=== PATIENT | male | born 1955 | race African-American/Black ===

== ENCOUNTER 2018-06-05 17:38 | Inpatient (IN) ==
[2018-06-05] MEDS ORDERED: LORazepam 1 MG TABLET PO STA (18:04)
[2018-06-05] MEDS ORDERED: LORazepam 1 MG TABLET ONE (18:06)
[2018-06-05 19:16] LABS: Basophils % 0.3 % (0.0-0.8); Hematocrit 40.7 VOL% (42.0-52.0); Hemoglobin 12.8 GM/DL (14.0-18.0); Immature Granulocytes % 0.5 %; Immature Granulocytes Absolute 0.07 #; Lymphocytes # 0.7 10*3/uL (1.4-4.0); Lymphocytes % 4.9 % (21.2-54.2); Mean Corpuscular HGB Conc 31.4 GM/DL (32-36); Mean Corpuscular Hemoglobin 26 PG (27-34); Mean Corpuscular Volume 83.4 FL (87-102); Mean Platelet Volume 9.9 FL (9.6-12.0); Monocytes # 0.7 10*3/uL (0.11-0.8); Monocytes % 5.1 % (1.7-12.7); Neutrophils # 12.9 10*3/uL (1.4-7.4); Neutrophils % 89.2 % (38.7-73.9); Platelet Count 328 T/CUMM (130-400); Red Blood Count 4.88 MC/CUMM (3.8-5.5); Red Cell Distribution Width 15.4 % (9.3-17.3); White Blood Count 14.4 T/CUMM (4-12)
[2018-06-05 19:30] LABS: PT Patient Result 10.2 SECS; Partial Thromboplastin Time < 21.0 SECS (0-40)
[2018-06-05 19:38] LABS: Band Neutrophils 2 % (0-10); Lymphocytes 11 % (20-55); Platelet Estimate Normal; Segmented Neutrophils 83 % (50-85); Total Cells Counted 100
[2018-06-05 19:48] LABS: Lactic Acid 5.3 MMOL/L (0.4-2.0)
[2018-06-05 19:49] LABS: Alanine Aminotransferase 27 U/L (16-61); Albumin 3.7 G/DL (3.4-5.0); Alkaline Phosphatase 149 U/L (45-117); Aspartate Amino Transferase 41 U/L (0-37); Bilirubin,Total < 0.39 MG/DL (0.2-1.0); Blood Urea Nitrogen 22 MG/DL (7-18); Calcium 10.6 MG/DL (8.5-10.1); Glucose 123 MG/DL (74-106); Osmolality,Calculated 286.1 MOS/KG (273-304); Potassium 4.7 MMOL/L (3.5-5.1); Sodium 142 MMOL/L (136-145); Total Protein 7.8 G/DL (6.4-8.3)
[2018-06-05 19:51] LABS: Troponin I Only 0.018 NG/ML (0.00-0.045)
[2018-06-05] MEDS ORDERED: SODIUM CHLORIDE 0.9% 1,000 ML IV STA (20:30)
[2018-06-05] MEDS: VANCOMYCIN INJ 1,000 MG in SODIUM CHLORIDE 0.9% 250 ML IV SCH (21:30)
[2018-06-05] MEDS ORDERED: ONDANSETRON 4 MG/2 ML VIAL IV PRN (21:33)
[2018-06-05] MEDS ORDERED: BISACODYL 5 MG TABLET PO PRN (21:33)
[2018-06-05] MEDS ORDERED: ACETAMINOPHEN 325 MG TABLET PO PRN (21:33)
[2018-06-05] MEDS ORDERED: LACTULOSE 20 GM/30 ML UDCUP PO PRN (21:33)
[2018-06-05] MEDS ORDERED: traZODone 50 MG TABLET PO PRN (21:33)
[2018-06-05] MEDS ORDERED: SODIUM CHLORIDE 0.9% 1,000 ML IV SCH (22:30)
[2018-06-05 22:37] LABS: Apearance,Urine CLEAR (Clear); Bilirubin,Urine Negative (Negative); Blood, Urine Small mg/dL (Negative); Glucose,Urine (UA) Negative (Negative); Hyaline Casts,Urine 1 /LPF (0-3); Ketones,Urine Negative (Negative); Mucus,Urine Occasional /LPF (Occasional); Nitrite,Urine Negative (Negative); Protein,Urine 100 MG/DL; RBC,Urine 3 /HPF (0-4); Urine Color Yellow (Yellow); Urine Specific Gravity 1.011 (1.001-1.035); Urine Urobilinogen < 2.0 EU/DL (0.2-1.0); WBC,Urine 1 /HPF (0-6)
[2018-06-06] MEDS: MORPHINE 4 MG/1 ML VIAL IV PRN ×3 (00:46→22:21)
[2018-06-06 05:33] LABS: Calcium 8.8 MG/DL (8.5-10.1); Potassium 3.8 MMOL/L (3.5-5.1)
[2018-06-06 05:36] LABS: Albumin 3.1 G/DL (3.4-5.0); Bilirubin,Total 0.4 MG/DL (0.2-1.0); Calcium 8.8 MG/DL (8.5-10.1); Potassium 3.8 MMOL/L (3.5-5.1); Total Protein 6.4 G/DL (6.4-8.3)
[2018-06-06 07:11] LABS: Basophils % 0.3 % (0.0-0.8); Eosinophils % 0.1 % (0.00-10.9); Hematocrit 34.3 VOL% (42.0-52.0); Immature Granulocytes % 0.7 %; Immature Granulocytes Absolute 0.09 #; Lymphocytes # 1.2 10*3/uL (1.4-4.0); Mean Corpuscular HGB Conc 31.5 GM/DL (32-36); Mean Corpuscular Hemoglobin 26 PG (27-34); Mean Corpuscular Volume 83.9 FL (87-102); Mean Platelet Volume 10.1 FL (9.6-12.0); Monocytes # 1.5 10*3/uL (0.11-0.8); Monocytes % 11.5 % (1.7-12.7); Neutrophils # 10.2 10*3/uL (1.4-7.4); Neutrophils % 78.4 % (38.7-73.9); Platelet Count 265 T/CUMM (130-400); Red Blood Count 4.09 MC/CUMM (3.8-5.5); Red Cell Distribution Width 15.2 % (9.3-17.3)
[2018-06-06 07:14] LABS: Hemoglobin 10.8 GM/DL (14.0-18.0)
[2018-06-06] MEDS: ATENOLOL 50 MG TABLET PO SCH (11:02)
[2018-06-06] MEDS: VANCOMYCIN INJ 1,000 MG in SODIUM CHLORIDE 0.9% 250 ML IV SCH ×2 (11:07→20:48)
[2018-06-06] MEDS: FAMOTIDINE 20 MG TABLET PO SCH ×2 (13:48→20:50)
[2018-06-06] MEDS: DEXTROSE 5% LACTATED RINGERS 1,000 ML IV SCH (15:10)
[2018-06-07] MEDS: DEXTROSE 5% LACTATED RINGERS 1,000 ML IV SCH ×4 (01:15→23:24)
[2018-06-07] MEDS ORDERED: ceFAZolin 2,000 MG in PREMIX 1 EACH IV ONE (06:36)
[2018-06-07] MEDS ORDERED: VANCOMYCIN INJ 1,000 MG in SODIUM CHLORIDE 0.9% 250 ML IV ONE (06:36)
[2018-06-07 08:30] LABS: Total Protein (Chem) 6.6 G/DL (6.4-8.3)
[2018-06-07] MEDS: ATENOLOL 50 MG TABLET PO SCH (09:27)
[2018-06-07] MEDS: FAMOTIDINE 20 MG TABLET PO SCH ×2 (09:28→21:19)
[2018-06-07] MEDS: VANCOMYCIN INJ 1,000 MG in SODIUM CHLORIDE 0.9% 250 ML IV SCH ×2 (10:04→21:19)
[2018-06-07] MEDS ORDERED: BACITRACIN OINT 0.9 GM PACK TOP ONE (10:16)
[2018-06-07 10:53] LABS: Albumin (SPE) 3.9 G/DL (3.2-5.3); Alpha 1 (SPE) 0.3 G/DL (0.1-0.4); Alpha 1 (SPE) Rel % 3.8 %; Alpha 2 (SPE) 0.9 G/DL (0.4-1.0); Beta (SPE) 0.8 G/DL (0.5-1.1); Beta (SPE) Rel % 11.7 %; Gamma (SPE) 0.7 G/DL (0.7-1.7); Gamma (SPE) Rel % 10.5 %
[2018-06-07] MEDS ORDERED: diphenhydrAMINE CAP 25 MG CAPSULE PO PRN (11:29)
[2018-06-07] MEDS ORDERED: MAGNESIUM HYDROXIDE SUSP 30 ML UDCUP PO PRN (11:29)
[2018-06-07] MEDS ORDERED: TRANEXAMIC ACID 1,000 MG/10 ML VIAL ONE (11:39)
[2018-06-07] MEDS ORDERED: TOBRAMYCIN 1.2 GM VIAL TOP ONE (11:39)
[2018-06-07] MEDS ORDERED: VANCOMYCIN 1,000 MG VIAL ONE (11:39)
[2018-06-07] MEDS ORDERED: GLYCOPYRROLATE 0.4 MG/2 ML VIAL ONE (12:50)
[2018-06-07] MEDS ORDERED: SUCCINYLCHOLINE 200 MG/10 ML VIAL ONE (12:50)
[2018-06-07] MEDS ORDERED: SEVOFLURANE 1 UNIT/15 MINUTE INH ONE (12:50)
[2018-06-07] MEDS ORDERED: LACTATED RINGERS 1,000 ML IV ONE (12:50)
[2018-06-07] MEDS ORDERED: ROCURONIUM 100 MG/10 ML VIAL IV ONE (12:50)
[2018-06-07] MEDS ORDERED: DEXAMETHASONE 10 MG/1 ML VIAL ONE (12:50)
[2018-06-07] MEDS ORDERED: NEOSTIGMINE 10 MG/10 ML VIAL ONE (12:50)
[2018-06-07] MEDS ORDERED: fentaNYL 100 MCG/2 ML VIAL ONE (12:50)
[2018-06-07] MEDS ORDERED: PHENYLEPHRINE 1 MG/10 ML SYRINGE IV ONE (12:50)
[2018-06-07] MEDS ORDERED: ONDANSETRON 4 MG/2 ML VIAL ONE (12:50)
[2018-06-07] MEDS ORDERED: ACETAMINOPHEN 1,000 MG/100 ML VIAL IV ONE (12:50)
[2018-06-07] MEDS ORDERED: PROPOFOL 200 MG/20 ML VIAL IV ONE (12:51)
[2018-06-07 12:55] LABS: Apearance,Urine CLEAR (Clear); Bacteria,Urine Occasional /HPF (Few); Bilirubin,Urine Negative (Negative); Blood, Urine Small mg/dL (Negative); Glucose,Urine (UA) Negative (Negative); Ketones,Urine Negative (Negative); Nitrite,Urine Negative (Negative); Protein,Urine 100 MG/DL; RBC,Urine 1 /HPF (0-4); Urine Color Yellow (Yellow); Urine Specific Gravity 1.013 (1.001-1.035); Urine Urobilinogen < 2.0 EU/DL (0.2-1.0); WBC,Urine 1 /HPF (0-6)
[2018-06-07 13:19] LABS: Basophils # 0.1 10*3/uL (0.0-0.2); Basophils % 0.4 % (0.0-0.8); Eosinophils % 0.2 % (0.00-10.9); Hematocrit 33.6 VOL% (42.0-52.0); Hemoglobin 10.6 GM/DL (14.0-18.0); Immature Granulocytes % 0.7 %; Immature Granulocytes Absolute 0.09 #; Lymphocytes # 1.3 10*3/uL (1.4-4.0); Lymphocytes % 9.3 % (21.2-54.2); Mean Corpuscular HGB Conc 31.5 GM/DL (32-36); Mean Corpuscular Hemoglobin 26 PG (27-34); Mean Corpuscular Volume 83.6 FL (87-102); Mean Platelet Volume 9.5 FL (9.6-12.0); Monocytes # 1.3 10*3/uL (0.11-0.8); Monocytes % 9.3 % (1.7-12.7); Neutrophils # 10.8 10*3/uL (1.4-7.4); Neutrophils % 80.1 % (38.7-73.9); Platelet Count 229 T/CUMM (130-400); Red Blood Count 4.02 MC/CUMM (3.8-5.5); Red Cell Distribution Width 15.3 % (9.3-17.3); White Blood Count 13.5 T/CUMM (4-12)
[2018-06-07 14:04] LABS: Calcium 8.1 MG/DL (8.5-10.1); Osmolality,Calculated 277.5 MOS/KG (273-304); Potassium 3.9 MMOL/L (3.5-5.1)
[2018-06-07] MEDS: KETOROLAC 30 MG/1 ML VIAL IV SCH ×2 (14:40→21:20)
[2018-06-07] MEDS: ACETAMINOPHEN 500 MG TABLET PO SCH ×2 (16:19→21:19)
[2018-06-07] MEDS: ceFAZolin 2,000 MG in PREMIX 1 EACH IV SCH ×2 (16:23→23:24)
[2018-06-08] MEDS: DEXTROSE 5% LACTATED RINGERS 1,000 ML IV SCH ×2 (01:21→09:57)
[2018-06-08] MEDS: ACETAMINOPHEN 500 MG TABLET PO SCH ×2 (03:00→09:41)
[2018-06-08] MEDS: KETOROLAC 30 MG/1 ML VIAL IV SCH ×2 (03:00→09:42)
[2018-06-08] MEDS: FONDAPARINUX 2.5 MG/0.5 ML SYRINGE SUBCUT SCH (05:12)
[2018-06-08 06:06] LABS: Basophils % 0.1 % (0.0-0.8); Hemoglobin 9.6 GM/DL (14.0-18.0); Immature Granulocytes % 0.5 %; Immature Granulocytes Absolute 0.07 #; Mean Corpuscular Hemoglobin 26 PG (27-34); Mean Corpuscular Volume 84.5 FL (87-102); Mean Platelet Volume 10.5 FL (9.6-12.0); Monocytes # 1.6 10*3/uL (0.11-0.8); Neutrophils # 11.7 10*3/uL (1.4-7.4); Neutrophils % 81.4 % (38.7-73.9); Platelet Count 219 T/CUMM (130-400); Red Blood Count 3.67 MC/CUMM (3.8-5.5); Red Cell Distribution Width 15.1 % (9.3-17.3); White Blood Count 14.4 T/CUMM (4-12)
[2018-06-08 06:42] LABS: Calcium 8.5 MG/DL (8.5-10.1); Osmolality,Calculated 287.1 MOS/KG (273-304); Potassium 3.7 MMOL/L (3.5-5.1)
[2018-06-08] MEDS: ATENOLOL 50 MG TABLET PO SCH (09:41)
[2018-06-08] MEDS: FAMOTIDINE 20 MG TABLET PO SCH ×2 (09:41→20:39)
[2018-06-08] MEDS: VANCOMYCIN INJ 1,000 MG in SODIUM CHLORIDE 0.9% 250 ML IV SCH (09:41)
[2018-06-08] MEDS: cefTRIAXone 1,000 MG in SYRINGE 1 EACH IV SCH (11:30)
[2018-06-08] MEDS: CELECOXIB 200 MG CAPSULE PO SCH (18:02)
[2018-06-08] MEDS: DOCUSATE SODIUM 100 MG CAPSULE PO PRN (20:44)
[2018-06-09] MEDS: FONDAPARINUX 2.5 MG/0.5 ML SYRINGE SUBCUT SCH (05:23)
[2018-06-09 07:10] LABS: Basophils # 0.1 10*3/uL (0.0-0.2); Basophils % 0.6 % (0.0-0.8); Eosinophils # 0.2 10*3/uL (0.0-0.87); Eosinophils % 2.1 % (0.00-10.9); Hemoglobin 9.9 GM/DL (14.0-18.0); Immature Granulocytes % 0.7 %; Immature Granulocytes Absolute 0.08 #; Lymphocytes # 1.1 10*3/uL (1.4-4.0); Lymphocytes % 10.1 % (21.2-54.2); Mean Corpuscular HGB Conc 31.9 GM/DL (32-36); Mean Corpuscular Hemoglobin 27 PG (27-34); Mean Corpuscular Volume 83.8 FL (87-102); Mean Platelet Volume 9.9 FL (9.6-12.0); Monocytes # 1.2 10*3/uL (0.11-0.8); Monocytes % 10.7 % (1.7-12.7); Neutrophils # 8.5 10*3/uL (1.4-7.4); Neutrophils % 75.8 % (38.7-73.9); Platelet Count 278 T/CUMM (130-400); Red Cell Distribution Width 14.8 % (9.3-17.3); White Blood Count 11.2 T/CUMM (4-12)
[2018-06-09 07:31] LABS: Calcium 8.2 MG/DL (8.5-10.1); Potassium 3.4 MMOL/L (3.5-5.1)
[2018-06-09] MEDS: CELECOXIB 200 MG CAPSULE PO SCH (08:20)
[2018-06-09] MEDS: ATENOLOL 50 MG TABLET PO SCH (08:21)
[2018-06-09] MEDS: FAMOTIDINE 20 MG TABLET PO SCH ×2 (08:21→21:07)
[2018-06-09] MEDS: cefTRIAXone 1,000 MG in SYRINGE 1 EACH IV SCH (11:30)
[2018-06-10] MEDS: FONDAPARINUX 2.5 MG/0.5 ML SYRINGE SUBCUT SCH (05:12)
[2018-06-10 05:15] LABS: Basophils # 0.1 10*3/uL (0.0-0.2); Basophils % 0.5 % (0.0-0.8); Eosinophils # 0.5 10*3/uL (0.0-0.87); Eosinophils % 4.9 % (0.00-10.9); Hematocrit 30.5 VOL% (42.0-52.0); Hemoglobin 9.8 GM/DL (14.0-18.0); Immature Granulocytes % 0.8 %; Immature Granulocytes Absolute 0.07 #; Lymphocytes % 11.2 % (21.2-54.2); Mean Corpuscular HGB Conc 32.1 GM/DL (32-36); Mean Corpuscular Hemoglobin 27 PG (27-34); Mean Corpuscular Volume 82.7 FL (87-102); Mean Platelet Volume 9.3 FL (9.6-12.0); Monocytes # 1.1 10*3/uL (0.11-0.8); Monocytes % 11.6 % (1.7-12.7); Neutrophils # 6.5 10*3/uL (1.4-7.4); Platelet Count 293 T/CUMM (130-400); Red Blood Count 3.69 MC/CUMM (3.8-5.5); Red Cell Distribution Width 14.6 % (9.3-17.3); White Blood Count 9.2 T/CUMM (4-12)
[2018-06-10] MEDS: CELECOXIB 200 MG CAPSULE PO SCH (09:31)
[2018-06-10] MEDS: ATENOLOL 50 MG TABLET PO SCH (09:32)
[2018-06-10] MEDS: FAMOTIDINE 20 MG TABLET PO SCH ×2 (09:32→21:43)
[2018-06-10] MEDS: cefTRIAXone 1,000 MG in SYRINGE 1 EACH IV SCH (10:30)
[2018-06-11] MEDS: FONDAPARINUX 2.5 MG/0.5 ML SYRINGE SUBCUT SCH (07:05)
[2018-06-11] MEDS: ATENOLOL 50 MG TABLET PO SCH (08:45)
[2018-06-11] MEDS: CELECOXIB 200 MG CAPSULE PO SCH (08:45)
[2018-06-11] MEDS: FAMOTIDINE 20 MG TABLET PO SCH ×2 (08:45→21:44)
[2018-06-11] MEDS: cefTRIAXone 1,000 MG in SYRINGE 1 EACH IV SCH (11:18)
[2018-06-12 05:50] LABS: Calcium 8.2 MG/DL (8.5-10.1); Osmolality,Calculated 285.8 MOS/KG (273-304); Potassium 3.3 MMOL/L (3.5-5.1)
[2018-06-12] MEDS: FONDAPARINUX 2.5 MG/0.5 ML SYRINGE SUBCUT SCH (05:53)
[2018-06-12] MEDS: FAMOTIDINE 20 MG TABLET PO SCH ×2 (09:02→21:22)
[2018-06-12] MEDS: CELECOXIB 200 MG CAPSULE PO SCH (09:02)
[2018-06-12] MEDS: ATENOLOL 50 MG TABLET PO SCH (09:03)
[2018-06-12] MEDS ORDERED: POTASSIUM CHLORIDE 20 MEQ PACK PO ONE (09:55)
[2018-06-12] MEDS: cefTRIAXone 1,000 MG in SYRINGE 1 EACH IV SCH (10:26)
[2018-06-13] MEDS: FONDAPARINUX 2.5 MG/0.5 ML SYRINGE SUBCUT SCH (05:54)
[2018-06-13] MEDS: cefTRIAXone 1,000 MG in SYRINGE 1 EACH IV SCH (10:00)
[2018-06-13] MEDS: FAMOTIDINE 20 MG TABLET PO SCH ×2 (10:12→21:45)
[2018-06-13] MEDS: ATENOLOL 50 MG TABLET PO SCH (10:13)
[2018-06-13] MEDS: DOCUSATE SODIUM 100 MG CAPSULE PO PRN (10:14)
[2018-06-13] MEDS: CELECOXIB 200 MG CAPSULE PO SCH (10:15)
[2018-06-13] MEDS: LEVOFLOXACIN 750 MG TABLET PO SCH (11:18)
[2018-06-14] MEDS: FONDAPARINUX 2.5 MG/0.5 ML SYRINGE SUBCUT SCH (05:46)
[2018-06-14 06:09] LABS: Basophils % 0.4 % (0.0-0.8); Eosinophils # 0.3 10*3/uL (0.0-0.87); Eosinophils % 4.6 % (0.00-10.9); Hematocrit 29.7 VOL% (42.0-52.0); Hemoglobin 9.5 GM/DL (14.0-18.0); Immature Granulocytes % 2.4 %; Immature Granulocytes Absolute 0.16 #; Lymphocytes # 1.2 10*3/uL (1.4-4.0); Lymphocytes % 18.1 % (21.2-54.2); Mean Corpuscular Hemoglobin 27 PG (27-34); Mean Platelet Volume 9.2 FL (9.6-12.0); Monocytes # 0.9 10*3/uL (0.11-0.8); Monocytes % 13.7 % (1.7-12.7); Neutrophils # 4.1 10*3/uL (1.4-7.4); Neutrophils % 60.8 % (38.7-73.9); Platelet Count 412 T/CUMM (130-400); Red Blood Count 3.58 MC/CUMM (3.8-5.5); White Blood Count 6.8 T/CUMM (4-12)
[2018-06-14 07:55] LABS: Calcium 8.7 MG/DL (8.5-10.1); Potassium 3.9 MMOL/L (3.5-5.1)
[2018-06-14] MEDS: ATENOLOL 50 MG TABLET PO SCH (10:23)
[2018-06-14] MEDS: CELECOXIB 200 MG CAPSULE PO SCH (10:23)
[2018-06-14] MEDS: FAMOTIDINE 20 MG TABLET PO SCH ×2 (10:23→21:09)
[2018-06-14] MEDS: LEVOFLOXACIN 750 MG TABLET PO SCH (10:24)
[2018-06-15] MEDS: FONDAPARINUX 2.5 MG/0.5 ML SYRINGE SUBCUT SCH (05:54)
[2018-06-15] MEDS: FAMOTIDINE 20 MG TABLET PO SCH (09:21)
[2018-06-15] MEDS: ATENOLOL 50 MG TABLET PO SCH (09:21)
[2018-06-15] MEDS: CELECOXIB 200 MG CAPSULE PO SCH (09:21)
[2018-06-15] MEDS: LEVOFLOXACIN 750 MG TABLET PO SCH (11:14)
[2018-06-15 11:27] VITALS: BP 120/70
== END 2018-06-15 14:20 | disposition swing bed (61) | DRG 470 ==
LOC: EDBD → EDUNIT# → N.ED 17:38 → SUATTDRO 21:26 → N.EDINP 21:26 → N.3E 23:13
PROVIDERS: ADMIT Internal Medicine; ATTEND Family Medicine